=== PATIENT | female | born 1975 | race Caucasian/White ===

== ENCOUNTER 2022-03-06 18:50 | Emergency (ER) | payer MEDICAID ==
[~2022-03-06] VITALS: Ht 167.6 cm; Wt 95.3 kg
[2022-03-06 19:13] VITALS: BP_SYST 113
[2022-03-06] MEDS ORDERED: DIAZEPAM 5 MG TABLET (VALIUM) PO ONE (19:45)
[2022-03-06] MEDS ORDERED: KETOROLAC TROMETHAMINE 60 MG/2 ML VIAL IM ONE (19:45)
--- NOTE | 2022-03-06 19:51 | NUR ---
Placed in room CH1. Placed on monitor. VSS at this time. Report given to SHERRELL Cabello.
--- NOTE | 2022-03-06 20:00 | NUR ---
Report received from SHERRELL Lebron; assuming care of patient at this time.
[2022-03-06 20:04] LABS: BILIRUBIN,URINE NEGATIVE (NEGATIVE); BLOOD, URINE NEGATIVE (NEGATIVE); CLARITY/URINE CLEAR (CLEAR); COLOR,URINE YELLOW (YELLOW); GLUCOSE,URINE NEGATIVE (NEGATIVE); KETONES,URINE NEGATIVE (NEGATIVE); LEUKOCYTE ESTERASE ,URINE NEGATIVE (NEGATIVE); NITRITE, URINE NEGATIVE (NEGATIVE); PROTEIN URINE NEGATIVE (NEGATIVE); UROBILINOGEN,URINE 0.2 (0.2-1.0)
--- NOTE | 2022-03-06 20:05 | NUR ---
Patient presents from home with c/o lower back pain x3 days. Patient reports pain 10/10 at this time. Patient A/Ox4, VSS, ambulatory, resp even and unlabored. Nad noted at this time. ER MD Sandra made aware.
--- NOTE | 2022-03-06 20:30 | NUR ---
AAMIR Sandra at bedside
[2022-03-06] MEDS ORDERED: DICL75TA5 PO (20:57)
[2022-03-06] MEDS ORDERED: DICL20GE TP (20:57)
[2022-03-06 21:06] VITALS: BP_SYST 113
--- NOTE | 2022-03-06 21:06 | NUR ---
Patient given written and verbal discharge instructions and verbalizes understanding. ER MD discussed with patient the results and treatment provided. Patient in stable condition. ID arm band removed. . Rx of Voltaren given. Patient educated on pain management and to follow up with PMD. Pain Scale 0/10. Opportunity for questions provided and answered. Medication side effect fact sheet provided. Patient A/Ox4, VSS, ambulatory, resp even and unlabored. Nad noted at this time.
== END 2022-03-06 20:16 | disposition home or self-care (01) ==
LOC: SED 18:50
DX: S39.012A Strain of muscle, fascia and tendon of lower back, initial encounter (principal); Z79.899 Other long term (current) drug therapy; X50.0XXA Overexertion from strenuous movement or load, initial encounter; Y93.89 Activity, other specified; Y92.89 Other specified places as the place of occurrence of the external cause; Y99.8 Other external cause status
CPT/HCPCS: 99283; 81025; 96372; 81003; J1885

== ENCOUNTER 2022-05-05 10:32 | Emergency (ER) | payer MEDICAID ==
[~2022-05-05] VITALS: Ht 167.6 cm; Wt 95.3 kg
[2022-05-05 10:32] VITALS: BP_SYST 101
[~2022-05-05 10:32] MED LIST: DICL20GE TP; DICL75TA5 PO
--- NOTE | 2022-05-05 10:35 | NUR ---
Placed in room 07 . Placed on campus monitor, blood pressure machine and pulse oximeter. To gown for exam. Side rails up. Report given to SHERRELL CALDWELL.
--- NOTE | 2022-05-05 11:00 | NUR ---
ER DR. NEWMAN EXAMINING PT
[2022-05-05] MEDS ORDERED: DICY10CA13 PO (12:12)
--- NOTE | 2022-05-05 12:19 | NUR ---
Note katherine in [facility] - 05/05/22 at 1219 by [email or web address] Placed in room 07 . Placed on creative arts music therapist, blood pressure machine and pulse oximeter. To gown for exam. Side rails up. Report given to SHERRELL RODNEY.
--- NOTE | 2022-05-05 12:19 | NUR ---
Patient given written and verbal discharge instructions and verbalizes understanding. ER MD discussed with patient the results and treatment provided. Patient in stable condition. ID arm band removed. Rx of DICICLOMINE given. Patient educated on pain management and to follow up with PMD. Pain Scale 0/10. Opportunity for questions provided and answered. Medication side effect fact sheet provided.
[2022-05-05 12:20] VITALS: BP_SYST 101
== END 2022-05-05 12:19 | disposition home or self-care (01) ==
LOC: SED 10:32
DX: R10.30 Lower abdominal pain, unspecified (principal); R19.7 Diarrhea, unspecified
CPT/HCPCS: 81002; 81025; 99283